=== PATIENT | female | born 1975 | race Two or more races ===

== ENCOUNTER → 2020-04-12 12:42 | Outpatient (BNVA) | payer BC, SELFPAY | PROVIDERS: PCP Internal Medicine; Visit Provider Physician Assistant ==

== ENCOUNTER 2020-04-23 | Outpatient (REF) | payer BC, SELFPAY | END 2020-04-23 00:01 | disposition home or self-care (01) | LOC: HO.XRAY | PROVIDERS: Visit Provider Physician Assistant | DX: Z13.89 Encounter for screening for other disorder (principal) ==

== ENCOUNTER → 2020-04-23 14:11 | Outpatient (BNVA) | payer BC, SELFPAY | PROVIDERS: PCP Internal Medicine; Visit Provider Physician Assistant ==

== ENCOUNTER 2020-04-30 09:53 | Outpatient (REF) | payer BC, SELFPAY ==
--- NOTE | 2020-04-30 10:23 | ECG_ITS ---
Test Reason : SOB Blood Pressure : / mmHG Vent. Rate : 065 BPM Atrial Rate : 065 BPM P-R Int : 116 ms QRS Dur : 078 ms QT Int : 412 ms P-R-T Axes : 031 040 026 degrees QTc Int : 428 ms Normal sinus rhythm Normal ECG No previous ECGs available Referred By: Azeb Fisher Electronically Signed By:HUMBERTO FRANCISCO
[2020-04-30 10:55] LABS: MANUAL DIFF FLAG NO
[2020-04-30 11:04] LABS: Basophils Percent Auto 0.4 % (0-2); Eosinophils Absolute Auto 0.1 X10*3/uL (0.0-0.4); Eosinophils Percent Auto 1.8 % (0-4); Hematocrit 34.8 % (37-47); Hemoglobin 11.4 g/dl (12.0-16.0); Imm Gran Abs Auto 0.03 X10*3/uL (0.00-0.03); Imm Gran Pct Auto 0.4 % (0.0-0.4); Lymphocytes Absolute Auto 2.1 X10*3/uL (1.2-4.9); Mean Corpuscular HGB Conc 32.8 g/dl (31.0-35.0); Mean Corpuscular Hemoglobin 26.8 pg (27.0-33.0); Mean Corpuscular Volume 81.7 fL (80-98); Mean Platelet Volume 10.3 fL (9.4-12.3); Monocytes Absolute Auto 0.5 X10*3/uL (0.1-1.2); Monocytes Percent Auto 7.2 % (2-11); Neutrophils Absolute Auto 4.6 X10*3/uL (2.0-8.3); Neutrophils Percent Auto 62.2 % (45-73); Platelet Count 326 X10*3/uL (160-400); Red Blood Count 4.26 X10*6/uL (4.20-5.50); Red Cell Distribution Width 15.6 % (11.0-16.0); White Blood Count 7.4 X10*3/uL (4.8-10.8)
[2020-04-30 11:27] LABS: Alanine Aminotransferase 18 U/L (0-31); Albumin Level 4.5 g/dL (3.5-5.0); Alkaline Phosphatase 80 U/L (39-117); Anion Gap 13 (12-20); Aspartate Amino Transferase 16 U/L (5-31); Bilirubin Total 0.6 mg/dL (0.0-1.0); Blood Urea Nitrogen 16 mg/dL (9-16); C Reactive Protein 0.71 mg/dL (< or = 0.50); Calcium 9.1 mg/dL (8.4-10.2); Carbon Dioxide 26 mmol/L (22-29); Chloride 103 mmol/L (96-108); Cholesterol 176 mg/dL; Estimated Glomerular Filt Rate > 60; Glucose Fasting 96 mg/dL (60-99); HDL Cholesterol 55 mg/dL; Iron 46 mcg/dL (30-160); LDL Cholesterol Calculated 109 mg/dl; Percent Iron Saturation 10 % (15-50); Potassium 3.9 mmol/L (3.3-5.1); Sodium 138 mmol/L (135-145); Total Iron Binding Capacity 458 mcg/dL (228-428); Total Protein 7.8 g/dL (6.5-8.0); Triglycerides 61 mg/dL; Unsaturated Iron Binding 412 ug/dL
[2020-04-30 11:39] LABS: Estimated Average Glucose 108 mg/dL; Hemoglobin A1c % 5.4 %
[2020-04-30 11:50] LABS: Ferritin 5 ng/mL (10-250); TSH reflex Free T4 2.11 uIU/mL (0.32-4.0); Vitamin D 25-OH Total 17.6 ng/mL (>30)
[2020-04-30 11:58] LABS: Folate 15.8 ng/mL (> or = 4.0); Vitamin B12 609 pg/mL (200-900)
[2020-05-01 10:42] LABS: Calcium (PTHI) 9.3 mg/dL (8.6-10.2); PTHI 38 pg/mL (14-64)
[2020-05-02 21:32] LABS: Zinc 89 mcg/dL (60-130)
[2020-05-04 13:27] LABS: Vitamin A 45 mcg/dL (38-98)
[2020-05-05 13:16] LABS: Vitamin B1 <6 nmol/L (8-30)
== END 2020-04-30 09:54 | disposition home or self-care (01) ==
LOC: HO.LAB 09:53
PROVIDERS: Visit Provider Physician Assistant
DX: E66.01 Morbid (severe) obesity due to excess calories (principal); R06.02 Shortness of breath; Z68.37 Body mass index [BMI] 37.0-37.9, adult
CPT/HCPCS: 36415; 71046; 80053; 80061; 82306; 82607; 82728; 82746; 83036; 83525; 83540; 83970; 84425; 84443; 84590; 84630; 85025; 86140; 93005

== ENCOUNTER → 2020-05-03 13:14 | Outpatient (BNVA) | payer BC, SELFPAY | PROVIDERS: PCP Internal Medicine; Visit Provider Physician Assistant ==

== ENCOUNTER → 2020-05-08 07:34 | Outpatient (BNVA) | payer BC, SELFPAY | PROVIDERS: PCP Internal Medicine; Visit Provider Surgery ==

== ENCOUNTER 2020-05-13 08:49 | Outpatient (REF) | payer BC, SELFPAY ==
--- NOTE | ~2020-05-13 | FL_ITS ---
EXAMINATION: XR GI SERIES CLINICAL INFORMATION: Gastroesophageal reflux disease. COMPARISON: None TECHNIQUE: Upper GI was performed using thin and thick barium and effervescent granules. FINDINGS: There is a small sliding-type hiatal hernia. There is mild gastroesophageal reflux. The stomach and duodenum are normal-appearing. No fold thickening, mass, ulcer or stricture is seen. FLUOROSCOPY TIME: 0.5 DOSE AREA PRODUCT: 4.2 Childress per centimeter squared. 21 saved fluoroscopic images. FL/FL upper GI series IMPRESSION: Mild gastroesophageal reflux and small sliding-type hiatal hernia.
--- NOTE | ~2020-05-13 | XR_ITS ---
EXAMINATION: XR CHEST CLINICAL INFORMATION: Shortness of breath COMPARISON: None TECHNIQUE: 2 views of the chest were obtained. FINDINGS: No significant abnormality is noted involving the heart, lungs, mediastinum, bony thorax or soft tissues. XR/XR chest 2V IMPRESSION: Unremarkable examination.
--- NOTE | ~2020-05-13 | US_ITS ---
EXAMINATION: US COMPLETE ABDOMEN WITH LIVER ELASTOGRAPHY CLINICAL INFORMATION: Obesity COMPARISON: None. TECHNIQUE: Real-time imaging of the abdominal viscera. Noninvasive ultrasound liver fibrosis assessment is performed using Dung ElastPQ point quantification shear wave elastography (pSWE) with a C5-2 MHz transducer. Multiple elastography samples are obtained. FINDINGS: PANCREAS: Normal. The visualized pancreatic head and body are normal in appearance. The remainder of the pancreas is obscured from visualization by the overlying bowel gas. ABDOMINAL AORTA: The proximal, middle, and distal aortic segments are normal in caliber. INFERIOR VENA CAVA: Visualized portions are normal. LIVER: There is diffusely increased hepatic echogenicity and sound attenuation, suggesting diffuse hepatic steatosis. Normal hepatic size and contour. No focal liver lesion seen. No biliary ductal dilatation. The right lobe measures 10.9 cm in length. The left lobe measures 8.0 cm in length. Portal flow is hepatopetal. Shear wave liver elastography median stiffness is 1.3 m/s (reference: normal median stiffness is 1.3 m/s or less). IQR/median stiffness to assess sampling precision is 0.2 (reference: good quality data set is IQR/median stiffness of 0.15 or less). GALLBLADDER: Normal. The gallbladder is physiologically distended without evidence of stones, sludge, polyps, wall thickening or pericholecystic fluid. COMMON BILE DUCT: Normal in caliber measuring 0.2 cm in diameter. RIGHT KIDNEY: Normal. No hydronephrosis. No renal calculi or focal parenchymal lesions. The kidney measures 9.0 cm in maximum dimension. LEFT KIDNEY: Normal. No hydronephrosis. No renal calculi or focal parenchymal lesions. The kidney measures 9.7 cm in maximum dimension. SPLEEN: Normal. The spleen measures 8.2 cm in maximum dimension. FREE FLUID: None. US/US abdomen comp w elastography IMPRESSION: 1. There is diffusely increased hepatic echogenicity and sound attenuation, and appearance suggesting diffuse hepatic steatosis. No focal liver lesion seen. 2. Liver elastography: Although measurements suggest a high probability of normal liver stiffness, there is statistical variability of the sampling which decreases accuracy. REFERENCE: Society of Radiologists in Ultrasound Liver Stiffness Thresholds (2020): LIVER STIFFNESS THRESHOLDS: *Liver Stiffness equal or less than 1.3 m/s: High probability of being normal. *Liver Stiffness less than 1.7 m/s: In the absence of other known clinical signs, rules out compensated advanced chronic liver disease. *Liver Stiffness 1.7-2.1 m/s: Suggestive of compensated advanced chronic liver disease but need further test for confirmation. *Liver Stiffness over 2.1 m/s: Rules in compensated advanced chronic liver disease. *Liver Stiffness over 2.4 m/s: Suggestive of clinically significant portal hypertension. QUALITY OF DATA SET: *IQR/Median value equal or less than 0.15 implies a quality data set. *IQR/Median value over 0.15 implies a poor quality data set. SIGNIFICANT CHANGE FROM PRIOR EXAM: Significant change if liver stiffness measurement is 10% or greater from prior exam. OTHER CONSIDERATIONS: The stage of liver fibrosis may be overestimated in the setting of acute hepatitis, liver inflammation, elevated liver function tests, hepatic vascular congestion, obstructive cholestasis, non-fasting state, and infiltrative diseases such as amyloidosis and lymphoma. In some patients with NAFLD, the liver stiffness thresholds for compensated advanced chronic liver disease may be lower. In causes other than viral hepatitis and NAFLD, liver stiffness thresholds are not well established.
== END 2020-05-13 08:50 | disposition home or self-care (01) ==
LOC: HO.US 08:49
PROVIDERS: Visit Provider Surgery
DX: Z01.818 Encounter for other preprocedural examination (principal); R06.02 Shortness of breath; K21.9 Gastro-esophageal reflux disease without esophagitis; E66.01 Morbid (severe) obesity due to excess calories; Z68.37 Body mass index [BMI] 37.0-37.9, adult
CPT/HCPCS: 74240; 76705; 76981

== ENCOUNTER 2020-05-17 15:02 | Outpatient (REF) | payer BC, SELFPAY ==
[2020-05-18 16:06] LABS: H Pylori Breath Test NOT DETECTED (NOT DETECTED)
== END 2020-05-17 15:03 | disposition home or self-care (01) ==
LOC: HO.LNP 15:02
PROVIDERS: PCP Internal Medicine; Visit Provider Physician Assistant
DX: Z11.0 Encounter for screening for intestinal infectious diseases (principal)
CPT/HCPCS: 83013

== ENCOUNTER → 2020-05-20 08:17 | Outpatient (BNVA) | payer BC, SELFPAY | PROVIDERS: PCP Internal Medicine; Visit Provider Dietitian, Registered ==

== ENCOUNTER → 2020-05-29 08:11 | Outpatient (BNVA) | payer BC, SELFPAY | PROVIDERS: PCP Internal Medicine; Visit Provider Surgery ==

== ENCOUNTER → 2020-05-30 12:53 | Outpatient (BNVA) | payer BC, SELFPAY | PROVIDERS: PCP Internal Medicine; Visit Provider Physician Assistant ==

== ENCOUNTER → 2020-06-07 08:37 | Outpatient (BNVA) | payer BC, SELFPAY | PROVIDERS: PCP Internal Medicine; Visit Provider Surgery ==

== ENCOUNTER 2020-06-08 09:59 | Outpatient (REF) | payer BC, SELFPAY ==
[2020-06-08 11:58] LABS: MANUAL DIFF FLAG NO
[2020-06-08 12:16] LABS: Basophils Percent Auto 0.5 % (0-2); Eosinophils Absolute Auto 0.1 X10*3/uL (0.0-0.4); Eosinophils Percent Auto 2.2 % (0-4); Hematocrit 32.6 % (37-47); Hemoglobin 10.8 g/dl (12.0-16.0); Imm Gran Abs Auto 0.01 X10*3/uL (0.00-0.03); Imm Gran Pct Auto 0.2 % (0.0-0.4); Lymphocytes Absolute Auto 1.9 X10*3/uL (1.2-4.9); Lymphocytes Percent Auto 34.5 % (20-40); Mean Corpuscular HGB Conc 33.1 g/dl (31.0-35.0); Mean Corpuscular Hemoglobin 27.8 pg (27.0-33.0); Mean Platelet Volume 11.2 fL (9.4-12.3); Monocytes Absolute Auto 0.4 X10*3/uL (0.1-1.2); Monocytes Percent Auto 6.5 % (2-11); Neutrophils Absolute Auto 3.1 X10*3/uL (2.0-8.3); Neutrophils Percent Auto 56.1 % (45-73); Platelet Count 273 X10*3/uL (160-400); Red Blood Count 3.88 X10*6/uL (4.20-5.50); Red Cell Distribution Width 15.7 % (11.0-16.0); White Blood Count 5.6 X10*3/uL (4.8-10.8)
[2020-06-08 12:24] LABS: Prothrombin Time 11.3 SEC (10.8-13.0)
[2020-06-08 12:27] LABS: Partial Thromboplastin Time 28.5 SEC (24.1-38.0)
[2020-06-08 12:30] LABS: Estimated Average Glucose 103 mg/dL; Hemoglobin A1c % 5.2 %
[2020-06-08 12:58] LABS: Alanine Aminotransferase 14 U/L (0-31); Albumin Level 4.1 g/dL (3.5-5.0); Alkaline Phosphatase 63 U/L (39-117); Anion Gap 11 (12-20); Aspartate Amino Transferase 14 U/L (5-31); Bilirubin Total 0.5 mg/dL (0.0-1.0); Blood Urea Nitrogen 14 mg/dL (9-16); C Reactive Protein 0.11 mg/dL (< or = 0.50); Carbon Dioxide 25 mmol/L (22-29); Chloride 110 mmol/L (96-108); Cholesterol 151 mg/dL; Estimated Glomerular Filt Rate > 60; Glucose Random 100 mg/dL (60-115); HDL Cholesterol 50 mg/dL; LDL Cholesterol Calculated 89 mg/dl; Potassium 4.7 mmol/L (3.3-5.1); Sodium 141 mmol/L (135-145); Total Protein 6.9 g/dL (6.5-8.0); Triglycerides 62 mg/dL
[2020-06-08 13:07] LABS: TSH reflex Free T4 1.14 uIU/mL (0.32-4.0)
[2020-06-10 21:42] LABS: Insulin Level Total 6.2 uIU/mL
== END 2020-06-08 10:00 | disposition home or self-care (01) ==
LOC: HO.LAB 09:59
PROVIDERS: Visit Provider Surgery
DX: E66.9 Obesity, unspecified (principal)
CPT/HCPCS: 36415; 80053; 80061; 83036; 83525; 84443; 85025; 85610; 85730; 86140

== ENCOUNTER 2020-06-13 05:52 | Inpatient (IN) | payer BC, SELFPAY ==
[2020-06-10 14:13] VITALS: BMI 32.8
--- NOTE | 2020-06-12 10:27 | HO.ANESPROP2 ---
Documented by User: Isa Malave 06/12/20 10:30 HPI - Anesthesia Eval Consult details Narrative: 45yo F for Gastrectomy Sleeve PMFSH Active Problems Active Problems: All Active Problems (Updated 06/10/20 @ 14:10 by Poonam Suarez) BMI 37.0-37.9, adult (Acute) Body mass index (BMI) of 36.0 to 36.9 in adult (Acute) Vitamin B1 deficiency (Acute) Vitamin D deficiency (Acute) Constipation (Acute) BMI 33.0-33.9,adult (Acute) Hypertension (Acute) GERD (gastroesophageal reflux disease) (Acute) Obesity (BMI 30-39.9) (Acute) Past Medical History Medical History (Updated 06/10/20 @ 14:10 by Poonam Suarez) Anemia GERD (gastroesophageal reflux disease) Hiatal hernia Hypertension Hypothyroidism Obesity (BMI 30-39.9) PONV (postoperative nausea and vomiting) Family History Family History Mother Hypertension Diabetes Father No problems noted. Brother No problems noted. Brother No problems noted. Sister No problems noted. Son No problems noted. Son No problems noted. 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 If so, by whom?: No Advance Directives: No Advance Directives Information Provided: No Advance Directives on File: No Recently lost weight without trying: No Meds Allergies Allergy/AdvReac Type Severity Reaction Status Date / Time seafood Allergy Severe Anaphylaxis Verified 06/10/20 14:10 Home Medications Medication Instructions Recorded Confirmed Last Taken Type ferrous sulfate 325 mg (65 mg 325 mg PO DAILY 04/23/20 06/10/20 Unknown History iron) tablet,delayed release levothyroxine 75 mcg tablet 75 mcg PO QAM 04/23/20 06/10/20 Unknown History lisinopril 20 1 tab PO DAILY 04/23/20 06/10/20 Unknown History mg-hydrochlorothiazide 12.5 mg tablet Exam Exam Date and Time: June 12, 2020 1027 Height,Weight and Vital Signs: Height 5 ft Weight 76.204 kg Pertinent Lab Results Pertinent Lab Results: Laboratory Tests 06/08/20 10:46 Blood Type O Positive Antibody Screen NEGATIVE Laboratory Tests 06/08/20 06/08/20 10:46 10:46 WBC 5.6 Hgb 10.8 L Hct 32.6 L Plt Count 273 Sodium 141 Potassium 4.7 D Chloride 110 H Carbon Dioxide 25 BUN 14 Creatinine 0.76 Narrative Narrative: EKG 04/2020 Vent. Rate : 065 BPM Atrial Rate : 065 BPM P-R Int : 116 ms QRS Dur : 078 ms QT Int : 412 ms P-R-T Axes : 031 040 026 degrees QTc Int : 428 ms Normal sinus rhythm Normal ECG No previous ECGs available Assessment and Plan Assessment Anesthesia Assessment: Chart Reviewed Documented by User: Anahy Hernandez 06/13/20 07:42 [facility] Past Medical History Medical History (Updated 06/10/20 @ 14:10 by Poonam Suarez) Anemia GERD (gastroesophageal reflux disease) Hiatal hernia Hypertension Hypothyroidism Obesity (BMI 30-39.9) PONV (postoperative nausea and vomiting) Family History Family History Mother Hypertension Diabetes Father No problems noted. Brother No problems noted. Brother No problems noted. Sister No problems noted. Son No problems noted. Son No problems noted. 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 If so, by whom?: No Advance Directives: No Advance Directives Information Provided: No Advance Directives on File: No Recently lost weight without trying: No Meds Allergies Allergy/AdvReac Type Severity Reaction Status Date / Time seafood Allergy Severe Anaphylaxis Verified 06/10/20 14:10 Home Medications Medication Instructions Recorded Confirmed Last Taken Type ferrous sulfate 325 mg (65 mg 325 mg PO DAILY 04/23/20 06/10/20 Unknown History iron) tablet,delayed release levothyroxine 75 mcg tablet 75 mcg PO QAM 04/23/20 06/10/20 Unknown History lisinopril 20 1 tab PO DAILY 04/23/20 06/10/20 Unknown History mg-hydrochlorothiazide 12.5 mg tablet Exam Height,Weight and Vital Signs: Vital Signs Temp Pulse Resp BP Pulse Ox 06/13/20 06:20 98 F 91 18 149/74 H 98 Pertinent Lab Results Pertinent Lab Results: Lab Results 06/08/20 06/13/20 Range/Units 10:46 06:10 COVID-19 (JAYSHREE) Negative (Negative) COVID-19 Clin Com See Note Blood Type O Positive Antibody Screen NEGATIVE Airway Mallampati Class: II TM Dist: >3cm Neck ROM: Full Heart: RRR Lungs: CTAB Assessment and Plan Assessment Anesthesia Assessment: Anesthesia Plan Discussed and Chart Reviewed Final Anesthetic Review NPO: Yes ASA Class: II Final Preanesthetic Review: No Changes in Pt Med Stat, Meds/Allgs Chart Reviewed, Consent Obtained/Reviewed and Anes Risks/Benef Reviewed Patient Risk: Intermediate Procedure Risk: Intermediate Assessment/Block/Sedation in SS: Assess/Block/Sedation-SS Anesthetic Plan Anesthetic Plan: GA Disposition: Inp. Admit - Standard Bed
--- NOTE | 2020-06-12 20:18 | MHC.SHP ---
Pre-Procedural Eval Section A The patient is an INPATIENT: Yes The History & Physical has been completed within 30 days and I have reviewed it.: Yes Section B Chief Complaint: Morbid Severe Obesity Details of Present Illness: obesity Relevant Family History (Specify if Yes): No Relevant Social History: None Present Medications: None Medical History: No relevant PMH History of Previous Operations: No relevant previous surgery Allergies: Allergies Allergy/AdvReac Type Severity Reaction Status Date / Time seafood Allergy Severe Anaphylaxis Verified 06/10/20 14:10 Review of Systems Sugical H&P ROS: Negative: Constitution, Cardiovascular, Respiratory, Neurological, Psychiatric, Hem-Onc, Allergic/Immunologic, Gastrointestinal, Genitourinary, Musculoskeletal, Integumentary, Endocrine and Eyes/Ears/Nose/Throat Exam Surgical H&P Exam: Normal: HEENT, Normal: Heart, Normal: Lungs, Normal: Extremities, Normal: Abdomen, Normal: Skin and Normal: Neurological Plan Diagnosis/Plan: Unchanged I have reviewed the history and physical and performed a pertinent physical examination on my patient. No changes have occurred unless specified.
[2020-06-13] VITALS (14 sets, daily range): BP systolic 96–149; BP diastolic 50–74; PULSE 63–91; RESP 16–20; TEMP 36.1–36.6; O2SAT 96–100
--- NOTE | ~2020-06-13 | XR_ITS ---
EXAMINATION: XR CHEST CLINICAL INFORMATION: Decreased ventilation in OR. COMPARISON: Chest 04/30/2020 TECHNIQUE: Frontal view of the chest was obtained. FINDINGS: The lungs are hypoexpanded with bibasilar atelectasis. Rest of the lungs are clear. The heart size and pulmonary vascularity is normal. No gross bony abnormality. XR/XR chest 1V IMPRESSION: Hypoexpanded lungs with bibasilar atelectasis
[2020-06-13] MEDS: Scopolamine 1.5 MG PATCH.TD.3 TRANSDERMA (06:30)
[2020-06-13] MEDS: Lactated Ringers 1,000 ML 100 ML IVCONT (06:42)
[2020-06-13] MEDS: Lactated Ringers 1,000 ML 999 ML IV (06:42)
[2020-06-13 06:54] LABS: COVID-19 Test Negative (Negative); IDNOW Serial# 9DD0AD1C
--- NOTE | 2020-06-13 10:03 | P.BOP_ITS ---
Brief Operative Note Date of Service: 06/13/20 Pre-op diagnosis: Severe obesity and comorbidities (see below) Post-op diagnosis: same (Diaphragmatic hernia & congenital adhesions) Procedure: INITIAL PATIENT BMI ON PRESENTATION AT OUR OFFICE: 36.8 kg/m2 LAST BMI BEFORE SURGERY: 33kg/m2 COMORBIDITIES: hypertension, diaphragmatic hernia, GERD, hypothyroidism, asthma, liver steatosis, anemia The patient participated in an intensive weekly lifestyle intervention and exercise program during which the patient has lost between the initial office visit and the last preoperative visit 19.9 lbs, or 10.53% of initial actual body weight. The patient met the BMI-criteria for bariatric surgery based on the BMI on initial presentation. The patient should not be penalized for achieving such weight loss because it is not sustainable long-term without surgical intervention and it was achieved in preparation for bariatric surgery under my direction and based on my published research ([email or web address] and [email or web address]/[email or web address]) that a 10% preoperative weight loss improves long-term weight loss after surgery and reduces perioperative complications. Insurance carriers such as [facility] have endorsed my recommendations and have included in their policies criteria to include a 10% preoperative weight loss requirement. PROCEDURE: Esophago-gastroscopy, laparoscopic repair of incarcerated diaphragmatic hernia, laparoscopic lysis of adhesions, laparoscopic sleeve gastrectomy and laparoscopic gastropexy INDICATIONS: This is a 45 year-old female who was electively scheduled for laparoscopic, possibly open sleeve gastrectomy. The risks and complications of the procedure were discussed with the patient in advance, particularly the possibility of ; pulmonary embolism; staple line leak; bleeding; GERD; cardiac, pulmonary, or renal complications; as well as long-term problems such as insufficient weight loss, vitamin deficiency, strictures, or ulcers. The patient understood all the risks, and was in agreement to proceed with surgery. DESCRIPTION OF PROCEDURE: After informed consent was obtained from the patient, the patient was given preoperative antibiotics, and was transferred to the operating room. After successful induction of general anesthesia, pneumatic compressive devices were placed on both lower extremities. An upper endoscopy was performed next. The oropharynx and esophagus appeared to be within normal limits. There was a diaphragmatic hernia present of moderate size consistent with the findings of the preoperative upper GI. The stomach was entered. Then after all fluid and air were suctioned and the stomach was fully decompressed, the scope was withdrawn and secured in the mid esophagus. The patient was then prepped and draped in the usual sterile manner, and abdominal access was established at the right upper quadrant with the Zuleika technique. A 12 mm blunt port was inserted, and the abdomen was insufflated with CO2 to a pressure of 15 mmHg. Under direct visualization, additional ports were placed, specifically two 5 mm Versi-step ports to the left upper quadrant, and a 5 mm Versi-Step port to the right upper quadrant. 1% lidocaine plan was used to infiltrate all port sites as well as all fascia defects. Following that, the patient was placed in a steep reverse Trendelenburg position. An additional 5 mm port was placed to the right flank for the Mediflex retractor that was used to retract the left lobe of the liver. The gastro-esophageal fat pad was opened with the ultrasonic device (Thunderbeat, Olympus) and the anterior esophagus and hiatus were exposed. The angle of His was opened with the ultrasonic device the fundus of the stomach from any diaphragmatic and splenic attachments. I then opened the gastrocolic ligament between the transverse colon and the greater curvature of the stomach with the ultrasonic device to enter the lesser sac and facilitate the ligation of the short gastric vessels. I started at a mid-point along the greater curvature and using the Thunderbeat, all short gastric vessels were divided all the way to the angle of His until the left donita was completely dissected at its entirety. I then divided the gastro-colic ligament distally to a distance of about 3-4 cm proximal to the esophagus. There were extensive congenital adhesions between the pancreas and posterior gastric wall. Those were lysed completely with the ultrasonic device. Adhesiolysis took approximately 45 min to complete. There was an obvious significant-sized hiatal hernia. I continued dissecting along the hiatus toward the left donita and the angle of His. I fully mobilized the fat pad that was incarcerated in the hernia. I then continued by dissecting even further into the posterior retro-esophageal space all the way to the angle of His. The right donita was also dissected free completely. I continued to mobilize the esophagus into the mediastinum circumferentially. Both vagal nerves were seen and preserved. At that point, I was able to have at least 3 to 5 cm of esophagus into the abdomen. After I completely mobilized the esophagus from both the left and right donita and I had a good mobilization of the esophagus circumferentially, I closed the hernia defect with three interrupted #0 Surgidac sutures using the Endo Stitch device, two of which were placed posterior and one anterior to the esophagus. The stomach was then divided transversely with one Endo PERLA-45 and four PERLA-60 articulating purple loads using the Perfect Pizza stapler and loads. Every effort was made that the gastric sleeve had a tubular shape and an even caliber throughout. Once the sleeve resection was completed, the staple line of the gastric sleeve was reinforced with Hemoclips. The resected stomach was retrieved without difficulty from the Zuleika port. A gastropexy was then performed in order to prevent postoperative GERD and partial gastric volvulus. Several interrupted 2.0 Surgidac sutures were placed between the sleeve's staple line and the previously divided greater omentum and gastro-colic ligament using the Endo-Stitch device. An upper endoscopy was performed. There was no narrowing at the GE junction. The scope was easily advanced all the way to the pylorus which was clearly visualized. There was no narrowing anywhere and the sleeve's caliber was even throughout. The sleeve's staple line was inspected and there was no evidence of ischemia, bleeding or dehiscence. At that point the gastroscope was withdrawn from the patient?s mouth while we were decompressing the bowel and the stomach from any remaining air. I looked into the lesser sac to see how the sleeve was situating and it was situating well. There was no bleeding from the staple line, spleen, or short gastric vessels. The Mediflex retractor was removed, and the undersurface of the liver was inspected and there was no bleeding. The patient was placed in supine position. I closed the fascial defect of the 12 mm port site with a figure of eight #1 Polysorb suture. Then 100 cc 0.25 % Marcaine plain with 10 mg of Dexamethasone were used to infiltrate the fascial closure as well as all skin incisions. At this point, the abdomen was deflated, all ports were removed under direct vision, and no bleeding was noted from any of the port sites. The skin incisions were irrigated with saline and were closed with 4-0 absorbable monofilament sutures. Steri-Strips and OpSites were used to cover all incisions. The patient was extubated and was transferred in stable condition to the recovery room for further care. I was present and performed all allison parts of the procedure. Ms. Garciason was the first officer and flight instructor. There were no residents to assist with this case. Diego Le MD, PhD, FACS Surgeon: Thor Le MD Anesthesia: GETA, local and other (TAP block) Internal Control Analyst: Renetta Wright Estimated blood loss (mL): 5 IV fluids (mL): 2,400 Urine output (mL): 0 (No Chavez to record) Pathology: other (stomach) Condition: stable Disposition: PACU
--- NOTE | 2020-06-13 10:08 | PM.PNGS ---
Subjective Subjective Date of Service: 06/14/20 Interval history: Patient has mild incisional pain but was able to ambulate and use the incentive spirometer. Is tolerating phase 1 bariatric diet. Physical Exam Vital Signs: Vital Signs: Last Vital Signs Temp 98 F 06/13/20 06:20 Pulse 91 06/13/20 06:20 Resp 18 06/13/20 06:20 BP 149/74 H 06/13/20 06:20 Pulse Ox 98 06/13/20 06:20 Body Mass Index 32.8 GI: Inspection: Yes normal to inspection, Yes incision (dry, clean and intact) and Yes obesity Extrem: Right lower extremity: normal to inspection (no calf tenderness) Left lower extremity: normal to inspection (no calf tenderness) Progress Note: A&P Assessment and plan (1) Obesity (BMI 30-39.9): Status: Acute (2) BMI 33.0-33.9,adult: Status: Acute (3) GERD (gastroesophageal reflux disease): Status: Acute (4) Hypertension: Status: Acute (5) Hiatal hernia: Status: Acute (6) Steatosis, liver: Status: Acute (7) Congenital intra-abdominal adhesions: Status: Acute (8) Anemia: Status: Inactive (9) Hypothyroidism: Status: Acute (10) S/P laparoscopic sleeve gastrectomy: Status: Acute Assessment and Plan: 45 year old female was admitted 06/13/2020 with panniculitis. Problem 1: s/p laparoscopic sleeve gastrectomy, repair of incarcerated diaphragmatic hernia, gastropexy and lysis of adhesions Status: Doing well Plan: Check am labs, If OK, will begin phase 1 bariatric diet. (11) S/P repair of paraesophageal hernia: Status: Acute Fall Risk Details Current Medications: Current Medications Generic Name Dose Route Start Last Admin Trade Name Freq PRN Reason Stop Dose Admin Fentanyl 25 mcg 06/13/20 07:37 Fentanyl Citrate/Pf 100 Mcg/2 Ml Vial IVPUSH Q5M PRN Pain, Moderate (Pain Scale 4-6 Hydromorphone HCl 0.25 mg 06/13/20 07:37 Hydromorphone Hcl 0.5 Mg/0.5 Ml Syringe IVPUSH Q5M PRN Pain, Severe (Pain Scale 7-10) Lactated Ringer's 1,000 mls @ 100 mls/hr 06/13/20 06:00 06/13/20 06:42 Lr IVCONT 100 mls/hr .Q10H GIANNI Administration Promethazine HCl 6.25 mg/ 50.25 mls @ 201 mls/hr 06/13/20 07:37 Sodium Chloride IV ONCE PRN Nausea and Vomiting Ondansetron HCl 4 mg 06/13/20 07:37 Ondansetron Hcl 4 Mg/2 Ml Vial IVPUSH ONCE PRN Nausea and Vomiting Time Spent With Patient Time: Total time spent is greater than 50% in coordination of care (as documented) at patient's floor/unit and/or counseling patient: Time with patient: less than 15 minutes
--- NOTE | 2020-06-13 10:13 | P.DS_ITS ---
DS: Providers Provider Date of Service: 06/14/20 Date of admission: 06/13/20 05:52 Primary care physician: Unknown Physician DS: Medications Discharge Medications Home Medications: Home Medications Medication Instructions Recorded Confirmed ferrous sulfate 325 mg (65 mg 325 mg PO DAILY 04/23/20 06/10/20 iron) tablet,delayed release levothyroxine 75 mcg tablet 75 mcg PO QAM 04/23/20 06/10/20 lisinopril 20 1 tab PO DAILY 04/23/20 06/10/20 mg-hydrochlorothiazide 12.5 mg tablet Previous Rx's Medication Instructions Recorded cholecalciferol (vitamin D3) 125 125 mcg PO DAILY #30 cap 05/08/20 mcg (5,000 unit) capsule docusate sodium 100 mg capsule 100 mg PO DAILY #30 cap 05/13/20 ondansetron HCl 4 mg tablet 4 mg PO Q12H #20 tab 06/07/20 pantoprazole 40 mg tablet,delayed 40 mg PO DAILY #30 tab 06/07/20 release polyethylene glycol 3350 17 gram 17 g PO DAILY #14 ea 06/07/20 oral powder packet sucralfate 100 mg/mL oral 10 ml PO BID #400 ml 06/07/20 suspension DS: Summary Time Spent with Patient Time attestation: Total time spent providing and/or coordinating discharge services: 15 minutes ADMITTING DIAGNOSIS: morbid obesity, HTN, Hypothyroidism, anemia, GERD, hiatal hernia DISCHARGE DIAGNOSIS: same, s/p laparoscopic sleeve gastrectomy and repair of hiatal hernia PAST SURGICAL HISTORY: section, panniculecotmy, R carpal tunnel repair PROCEDURE: upper endoscopy, laparoscopic sleeve gastrectomy and repair of hiatal hernia DISCHARGE SUMMARY: History of Present Illness: The patient is a 45 year-old woman with a BMI of 36.8 kg/m2 and associated co- morbidities as described above. The patient had extensive work-up,lost 19.9 lbs preoperatively and was electively scheduled for laparoscopic, possible open sleeve gastrectomy and gastropexy. Risks and complications of the surgery were discussed with the patient in advance, particularly the possibility of , pulmonary embolism, anastomotic leak, bleeding, bowel injury, GERD, cardiac, renal or pulmonary complications. The patient understood all the risks and was in agreement with the surgical plan. Hospital Course: The patient underwent an uneventful laparoscopic sleeve gastrectomy with gastropexy and repair of hiatal hernia on the day of admission. Postoperatively, the patient was transferred to the surgical floor. The patient was on IV Acetaminophen and IV dilaudid for pain control. Patient was started on bariatric phase 1 diet POD #0. On postoperative day one, the patient was feeling well without nausea, vomiting, fevers, or tachycardia. The patient had some mild incisional pain. The abdomen was soft. On the morning of postoperative day one, the patient was continued on 1 ounce of water or ice every half hour. During the first day, the patient did fairly well, having some incisional pain, but able to ambulate adequately and to tolerate liquids well. Since the patient is doing well, we decided that the patient was ready to be discharged. The patient was given instructions to follow-up with me next week and to call my office for any fever over 101, persistent abdominal pain, nausea, vomiting, GERD, symptoms of DVT such as calf tenderness, or leg swelling, or pulmonary embolism such as chest pain or shortness of breath. The patient was also instructed to drink 40-60 ounces of liquids per day using the 1-ounce cups. The patient was given prescription for Tylenol for pain, Zofran prn for nausea, and pantoprazole and carafate. The patient was encouraged to ambulate and use the incentive spirometer. The patient was allowed to shower, but no baths, and encouraged to stay active at home. All of these instructions were given to the patient personally. All questions were answered and the patient understood all instructions, the instructions were also given to the patient in print. Discharge coordination time: Less than 30 minutes Physical Exam Vital Signs: Vital Signs: Last Vital Signs Temp 98 F 06/13/20 06:20 Pulse 91 06/13/20 06:20 Resp 18 06/13/20 06:20 BP 149/74 H 06/13/20 06:20 Pulse Ox 98 06/13/20 06:20 Body Mass Index 32.8 DS: Data Data Completed and Pending Pending studies at discharge: Pending at discharge 06/13/20 09:15 Surgical [PTH] Routine Labs on day of discharge: Laboratory Results - last 24 hr 06/13/20 06:10 COVID-19 ([facility]) Negative COVID-19 Clin Com See Note Discharge Plan Discharge Anticipated Discharge Date/Time: 06/14/20 11:10 Patient Disposition: Home, Self-Care Referrals: Physician,Unknown [Primary Care Provider] - Discharge Medications: Continued docusate sodium [Colace] 100 mg capsule 100 mg PO DAILY Qty: 30 RF: 2 levothyroxine 75 mcg tablet 75 mcg PO QAM RF: 0 lisinopril-hydrochlorothiazide 20-12.5 mg tablet 1 tab PO DAILY RF: 0 cholecalciferol (vitamin D3) 125 mcg (5,000 unit) capsule 125 mcg PO DAILY Qty: 30 RF: 2 pantoprazole 40 mg tablet,delayed release (DR/EC) 40 mg PO DAILY Qty: 30 RF: 2 sucralfate 100 mg/mL suspension 10 ml PO BID Qty: 400 RF: 2 ondansetron HCl [Zofran] 4 mg tablet 4 mg PO Q12H Qty: 20 RF: 0 Discontinued ferrous sulfate 325 mg (65 mg iron) tablet,delayed release (DR/EC) 325 mg PO DAILY RF: 0 polyethylene glycol 3350 [Miralax] 17 gram powder in packet 17 g PO DAILY Qty: 14 RF: 0 Discharge Orders: Discharge Order (Routine); Ordered 06/14/20 Ordered By: Thor Le Diet: other Activity on Discharge: No heavy lifting Stand Alone Forms: Patient Portal Discharge page Activity Restrictions/Additional Instructions: No tub baths, sex or returning to work until discussed at first post op appointment. No exercise, alcohol, tobacco or illegal drug use. Continue to use incentive spirometer hourly while awake. Walk in home for 5- 10 minutes every 2 hours during the first week. Continue phase 1 diet today and start phase 2 diet tomorrow morning. Follow all instructions in the bariatric handbook and call with any questions. Care Plan Goals: weight loss Health Concerns: obesity Plan of Treatment: see discharge instructions Discharge Date/Time: 06/14/20 10:10
[2020-06-13] MEDS: Famotidine/PF 20 MG/2 ML VIAL IVPUSH ×2 (10:47→20:23)
[2020-06-13 10:48] LABS: Hematocrit 31.3 % (37-47); Hemoglobin 10.1 g/dl (12.0-16.0)
[2020-06-13 11:01] LABS: Anion Gap 15 (12-20); Blood Urea Nitrogen 7 mg/dL (9-16); Calcium 7.9 mg/dL (8.4-10.2); Carbon Dioxide 20 mmol/L (22-29); Chloride 109 mmol/L (96-108); Creatinine Clr Calc Pharmacy 87.6; Estimated Glomerular Filt Rate > 60; Glucose Random 96 mg/dL (60-115); Potassium 4.5 mmol/L (3.3-5.1); Sodium 139 mmol/L (135-145)
[2020-06-13] MEDS: ondansetron HCL 4 MG/2 ML VIAL IVPUSH ×2 (12:45→20:23)
[2020-06-13] MEDS: Lactated Ringers 1,000 ML 125 ML IVCONT ×2 (12:46→20:24)
[2020-06-13] MEDS: ceFAZolin Sodium/Dextrose,Iso 2 GM/50 ML PIGGYBACK IV (14:12)
[2020-06-13] MEDS: Levothyroxine Sodium 75 MCG TABLET PO (14:20)
[2020-06-13] MEDS: 0.9 % Sodium Chloride Flush 3 ML SYRINGE IVFLUSH (20:24)
[2020-06-14 03:26] VITALS: BP 106/65; PULSE 68; RESP 20; TEMP 36.7; O2SAT 97
[2020-06-14] MEDS: ondansetron HCL 4 MG/2 ML VIAL IVPUSH (04:30)
[2020-06-14] MEDS: Lactated Ringers 1,000 ML 125 ML IVCONT (04:30)
[2020-06-14 06:39] LABS: Anion Gap 15 (12-20); Blood Urea Nitrogen 7 mg/dL (9-16); Calcium 7.9 mg/dL (8.4-10.2); Carbon Dioxide 15 mmol/L (22-29); Chloride 109 mmol/L (96-108); Creatinine Clr Calc Pharmacy 91.2; Estimated Glomerular Filt Rate > 60; Glucose Random 81 mg/dL (60-115); Potassium 4.5 mmol/L (3.3-5.1); Sodium 134 mmol/L (135-145)
[2020-06-14 07:00] LABS: Basophils Percent Auto 0.1 % (0-2); Hematocrit 27.4 % (37-47); Imm Gran Abs Auto 0.04 X10*3/uL (0.00-0.03); Imm Gran Pct Auto 0.4 % (0.0-0.4); Lymphocytes Absolute Auto 1.5 X10*3/uL (1.2-4.9); Lymphocytes Percent Auto 13.9 % (20-40); MANUAL DIFF FLAG NO; Mean Corpuscular HGB Conc 32.8 g/dl (31.0-35.0); Mean Corpuscular Hemoglobin 27.7 pg (27.0-33.0); Mean Corpuscular Volume 84.3 fL (80-98); Mean Platelet Volume 10.6 fL (9.4-12.3); Monocytes Absolute Auto 0.9 X10*3/uL (0.1-1.2); Neutrophils Absolute Auto 8.5 X10*3/uL (2.0-8.3); Neutrophils Percent Auto 77.6 % (45-73); Platelet Count 289 X10*3/uL (160-400); Red Blood Count 3.25 X10*6/uL (4.20-5.50); Red Cell Distribution Width 15.6 % (11.0-16.0)
[2020-06-14 07:29] VITALS: BP 109/68; PULSE 71; RESP 18; TEMP 36.6; O2SAT 98
[2020-06-14 07:32] VITALS: O2SAT 98
[2020-06-14 07:56] VITALS: BP 110/58; PULSE 71
[2020-06-14] MEDS: lisinopriL 20 MG TABLET PO (07:56)
[2020-06-14] MEDS: Levothyroxine Sodium 75 MCG TABLET PO (07:56)
[2020-06-14] MEDS: 0.9 % Sodium Chloride Flush 3 ML SYRINGE IVFLUSH (07:56)
[2020-06-14] MEDS: Famotidine/PF 20 MG/2 ML VIAL IVPUSH (07:56)
--- NOTE | 2020-06-14 08:17 | MHC.CM.PN ---
PATIENT IS FUNCTIONALLY INDEPENDENT. SHE IS DISCHARGED HOME WITH NO SERVICES. RN AWARE OF PLAN.
--- NOTE | 2020-06-14 08:34 | MHC.CM.PN ---
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 HOME SELF-CARE, BOYFRIEND TO TRANSPORT.
--- NOTE | 2020-06-14 09:02 | HO.POSTANES ---
Post Anesthesia Evaluation Post Anesthesia Evaluation Vital Signs: Vital Signs Temp Pulse Resp BP Pulse Ox 06/14/20 07:56 71 110/58 L 06/14/20 07:32 98 06/14/20 07:29 97.9 F 71 18 109/68 98 06/14/20 03:26 98.1 F 68 20 106/65 97 06/13/20 22:59 97.3 F 81 19 106/62 97 Anesthesia: General Endotracheal-GETA Mental Status: Awake Pain Control: Satisfactory Nausea/Vomiting: None Hydration: Adequate Anesthesia-Related Issues: No Anes. Related Issues
== END 2020-06-14 10:10 | disposition home or self-care (01) | DRG 403 ==
LOC: HO.SSSA 10:13 → HO.S3 10:34
PROVIDERS: Physician Assistant; Admitting Provider Surgery; Visit Provider Surgery
PROC: 0DB64Z3 Excision of Stomach, Percutaneous Endoscopic Approach, Vertical (ICD-10-PCS; CPT 43845; principal; 2020-06-13 07:30)
DX: E66.01 Morbid (severe) obesity due to excess calories (principal); K76.0 Fatty (change of) liver, not elsewhere classified; K44.0 Diaphragmatic hernia with obstruction, without gangrene; I10 Essential (primary) hypertension; E03.9 Hypothyroidism, unspecified; Z68.33 Body mass index [BMI] 33.0-33.9, adult; K66.0 Peritoneal adhesions (postprocedural) (postinfection); K21.9 Gastro-esophageal reflux disease without esophagitis; Z20.822 Contact with and (suspected) exposure to COVID-19; Z79.890 Hormone replacement therapy; Z79.899 Other long term (current) drug therapy
CPT/HCPCS: 36415; 71045; 80048; 85014; 85018; 85025; 86850; 86900; 87635; 88307; 88342; 99024; A4649; J0131; J0690; J1100; J1170; J2250; J2370; J2405; J2765; J3010

== ENCOUNTER → 2020-06-21 07:36 | Outpatient (BNVA) | payer BC, SELFPAY | PROVIDERS: Visit Provider Surgery ==

== ENCOUNTER → 2020-07-22 08:25 | Outpatient (BNVA) | payer BC, SELFPAY | PROVIDERS: Visit Provider Surgery ==

== ENCOUNTER → 2020-08-30 08:07 | Outpatient (BNVA) | payer BC, SELFPAY | PROVIDERS: Visit Provider Surgery ==

== ENCOUNTER → 2020-10-16 06:56 | Outpatient (BNVA) | payer BC, SELFPAY | PROVIDERS: Visit Provider Surgery ==